=== PATIENT | female | born 1990 | race Caucasian/White ===

== ENCOUNTER 2019-03-01 13:52 | Emergency (ER) | payer OTHER ==
[~2019-03-01] VITALS: Ht 165.1 cm; Wt 68.0 kg
[~2019-03-01 13:52] MED LIST: CEPHALEXIN 500500 M3 PO; DOXYCYCLINE 10100 MG PO; FLAGYL500 MG PO; FLOMAX0.4 MG PO; HYDROCODON-ACE1 EAC7 PO; HYDROCODONE-AP1 EAC6 PO; IBUPROFEN 600600 M1 PO; IBUPROFEN 800800 M1 PO; NAPROSYN500 MG PO; NOHOMEMEDICATIONS; NORCO 5-325 TA1 EACH PO; ONDANSETRON HCL4 M2 PO; PERCOCET 5-3251 EACH PO; PERCOCET PO; PHENERGAN 25 MG25 M1 PO; TRAMADOL 50 MG50 MG PO; TRINATE TABLET1 TAB; ZOFRAN ODT4 MG PO
[2019-03-01] MEDS ORDERED: PNV 29-1 TABLE1 EACH PO (14:04)
[2019-03-01] MEDS ORDERED: NORCO 5-325 TA1 EAC1 PO (14:32)
[2019-03-01] MEDS ORDERED: DICLOXACILLIN500 MG PO (14:32)
[2019-03-01 14:44] VITALS: BP 111/60
== END 2019-03-01 14:45 | disposition home or self-care (01) ==
LOC: M.ERS 13:52
DX: N61.0 Mastitis without abscess (principal); F17.210 Nicotine dependence, cigarettes, uncomplicated; Z91.040 Latex allergy status; Z87.442 Personal history of urinary calculi

== ENCOUNTER 2019-12-24 16:17 | Emergency (ER) | payer OTHER ==
[~2019-12-24] VITALS: Ht 165.1 cm; Wt 74.8 kg
[~2019-12-24 16:17] MED LIST changes: +DICLOXACILLIN500 MG PO; +NORCO 5-325 TA1 EAC1 PO; +PNV 29-1 TABLE1 EACH PO
[2019-12-24] MEDS ORDERED: ADDERALL 10 MG10 MG PO (16:25)
[2019-12-24] MEDS ORDERED: DOXYCYCLINE 10100 MG PO (18:03)
[2019-12-24] MEDS ORDERED: NORCO 5-325 TA1 EAC2 PO (18:03)
[2019-12-24 18:48] VITALS: BP 125/74
[2019-12-25] MEDS ORDERED: TRAMADOL 50 MG50 MG PO (20:17)
[2019-12-25] MEDS ORDERED: ONDANSETRON HCL4 M2 PO (20:17)
== END 2019-12-24 18:49 | disposition home or self-care (01) ==
LOC: M.ERS 16:17
DX: L05.01 Pilonidal cyst with abscess (principal); L72.3 Sebaceous cyst; F17.210 Nicotine dependence, cigarettes, uncomplicated; Z87.442 Personal history of urinary calculi; Z91.040 Latex allergy status

== ENCOUNTER 2019-12-25 19:16 | Emergency (ER) | payer OTHER ==
[~2019-12-25] VITALS: Ht 165.1 cm; Wt 74.8 kg
[~2019-12-25 19:16] MED LIST changes: +ADDERALL 10 MG10 MG PO; +NORCO 5-325 TA1 EAC2 PO
[2019-12-25] MEDS ORDERED: TRAMADOL 50 MG50 MG PO (20:17)
[2019-12-25] MEDS ORDERED: ONDANSETRON HCL4 M2 PO (20:17)
[2019-12-25 20:55] VITALS: BP 88/39
== END 2019-12-25 20:57 | disposition home or self-care (01) ==
LOC: M.ERS 19:16
DX: R11.2 Nausea with vomiting, unspecified (principal); L02.31 Cutaneous abscess of buttock; N80.9 Endometriosis, unspecified; F17.210 Nicotine dependence, cigarettes, uncomplicated; Z91.040 Latex allergy status; Z87.442 Personal history of urinary calculi

== ENCOUNTER 2021-03-01 17:03 | Emergency (ER) | payer OTHER ==
[~2021-03-01] VITALS: Ht 165.1 cm; Wt 77.1 kg
[2021-03-01 17:15] VITALS: BP 110/65
[2021-03-01] MEDS ORDERED: BIRTH CONTROL (17:18)
[2021-03-01] MEDS ORDERED: PREDNISONE 20 M20 M1 PO ×3 (18:04→18:08)
[2021-03-01] MEDS ORDERED: HYDROCODON-ACE1 EAC7 PO ×2 (18:04→18:08)
== END 2021-03-01 18:14 | disposition home or self-care (01) ==
LOC: M.ERS 17:03
DX: M25.562 Pain in left knee (principal); F17.210 Nicotine dependence, cigarettes, uncomplicated; Z91.040 Latex allergy status